=== PATIENT | male | born 1940 | race Caucasian/White ===

== ENCOUNTER → 2017-01-19 | Day surgery (SDC) | payer MEDICARE, OTHER ==
[~2017-01-19] VITALS: Ht 165.1 cm; Wt 65.7 kg
[~2017-01-19] MED LIST: NORCO 5-325 TA1 EACH PO
--- NOTE | ~2017-01-19 | OR ---
PATIENT'S NAME: ERNESTO GONZALES [facility] AGE: 77 Y [address] ROOM: [place] [id number] LOCATION: [facility] [place] DATE: 01/19/2017 OR/Procedure Report DISCHARGE DATE: FAMILY PHYSICIAN: Rosario Avila MD ATTENDING PHYSICIAN: MADHURI TENA SURGEON: Madhuri Tena MD SECOND FACING BASTER: None. DATE OF PROCEDURE: 01/19/2017 PREOPERATIVE DIAGNOSIS: Right base of tongue mass. 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 PROCEDURE: Microdirect laryngoscopy with biopsy. ANESTHESIA: General endotracheal. COMPLICATIONS: None. ESTIMATED BLOOD LOSS: Less than 5 mL. FINDINGS: Frozen section positive for squamous cell carcinoma. SPECIMEN: Right base of tongue mass. INDICATION: The patient is a 77-year-old male with a history of right neck mass, which was biopsied with atypical epithelial cells. On examination, the right base of tongue mass was identified in the clinic and he was brought to the OR for direct laryngoscopy and biopsy. DESCRIPTION OF PROCEDURE: The patient was brought from the preoperative area to the operating suite and placed on table supine position. All pressure points were padded. Time-out was performed correctly identifying the patient and the procedure. General endotracheal anesthesia was initiated. The patient was rotated 90 degrees counter-clockwise. A maxillary tooth guard was placed. The laryngoscope utilized for complete laryngoscopic examination. The right base of tongue revealed an area of whitish pale irregularity and firm mucosa in the right base of tongue near to the hypopharynx. The remainder of the examination was unremarkable for any other lesions. The primary itself appeared difficult to delineate the exact size, but appeared roughly 2 cm a less than full diameter. This did not extend into the piriform sinus, epiglottis, or supraglottis. The deep tongue musculature did not appear to be affected. Biopsies were taken of this area and sent for frozen section, which did return positive for squamous cell carcinoma. Afrin-soaked pledgets were applied to the area for hemostasis and then removed. The PATIENT'S NAME: ERNESTO GONZALES [facility] AGE: 77 Y [address] ROOM: [place] [address] LOCATION: [facility] [place]MIT DATE: 01/19/2017 OR/Procedure Report DISCHARGE DATE: FAMILY PHYSICIAN: Rosario Avila MD ATTENDING PHYSICIAN: MADHURI TENA patient was then awakened from anesthesia, returned to the recovery room in stable condition. MADHURI TENA MD MJ/modl /[id number] d: 01/19/17 1428 t: 01/26/17 1054, OPERATIVE SUMMARY
== END ==
LOC: GPOC 01-12 11:00 → GSDC 07:00
PROC: 0CBM8ZX Excision of Pharynx, Via Natural or Artificial Opening Endoscopic, Diagnostic (ICD-10-PCS; principal; 2017-01-19)
DX: C01 Malignant neoplasm of base of tongue (principal); E78.5 Hyperlipidemia, unspecified; F32.9 Major depressive disorder, single episode, unspecified; Z88.8 Allergy status to other drugs, medicaments and biological substances; Z98.890 Other specified postprocedural states
CPT/HCPCS: A9270; J2001; J7030